=== PATIENT | female | born 1950 | race Caucasian/White ===

== ENCOUNTER 2023-10-25 08:36 | Emergency (ER) | payer MEDICARE ==
[~2023-10-25] VITALS: Ht 157.5 cm; Wt 30.0 kg
[2023-10-25] VITALS (13 sets, daily range): BP systolic 125–151; BP diastolic 65–80
[2023-10-25 09:26] LABS: EOS% 0.2 % (0-8); HEMATOCRIT 30.4 % (37.0-47.0); HEMOGLOBIN 8.4 g/dl (12.0-16.0); IMMATURE GRANULOCYTES 0.5 % (0.0-5.0); LYMPH% 5.8 % (15-41); MEAN CELL VOLUME 82.4 fL CALC (80.0-100.0); MEAN CORPUSCULAR HGB 22.8 pG CALC (26.0-32.0); MEAN CORPUSCULAR HGB CONC 27.6 g/dL CAL (32.0-36.0); MONO% 8.9 % (2-13); NEUT# 10.97 thou/uL (2.00-7.15); NEUT% 84.6 % (42-76); RED BLOOD COUNT 3.69 mill/uL (4.20-5.60); RED CELL DISTRI WIDTH 19.6 % (11.5-15.5)
[2023-10-25 09:46] LABS: ALBUMIN 3.2 g/dL (3.2-5.0); ALKALINE PHOSPHATASE 233 u/l (38-126); ANION GAP 12 (6-22 (CALC)); BILIRUBIN, TOTAL 0.6 mg/dL (0.02-1.3); BUN 21 mg/dL (8-23); BUN/CREATININE RATIO 38 (12-20 (CALC)); CARBON DIOXIDE 33 mmol/l (22-30); CHLORIDE 98 mmol/l (95-108); CREATININE 0.6 mg/dL (0.5-1.0); GFR FOR AFR.AMER. > 60 ML/MIN (>=60 (CALC)); GFR OTHER RACES > 60 ML/MIN (>=60 (CALC)); POTASSIUM 2.9 mmol/l (3.5-5.1); SGOT/AST 39 u/l (9-36); SODIUM 139 mmol/l (137-146); TOTAL PROTEIN 7.3 g/dL (6.3-8.2)
[2023-10-25] MEDS ORDERED: HYDROCO/APAP1 TA9 PO (12:06)
[2023-10-25] MEDS ORDERED: ZOFRAN4 MG/TAB PO (12:06)
== END 2023-10-25 13:03 | disposition home or self-care (01) ==
LOC: ED 08:36
PROVIDERS: Family Medicine
PROC: 05HM33Z Insertion of Infusion Device into Right Internal Jugular Vein, Percutaneous Approach (ICD-10-PCS; principal; 2023-10-25)
DX: I26.92 Saddle embolus of pulmonary artery without acute cor pulmonale (principal); R16.0 Hepatomegaly, not elsewhere classified; J44.9 Chronic obstructive pulmonary disease, unspecified; F17.200 Nicotine dependence, unspecified, uncomplicated; Z20.822 Contact with and (suspected) exposure to COVID-19
CPT/HCPCS: Q9967